=== PATIENT | male | born 1930 | race Caucasian/White ===

== ENCOUNTER 2017-05-16 15:31 | Emergency (ER) | payer MEDICARE ==
--- NOTE | 2017-05-16 15:55 | ED ---
General Adult HPI <Raphael Steinberg - Last Filed: 05/16/17 15:55> - General Source: patient, family, RN notes reviewed Limitations: no limitations <August Smalls - Last Filed: 05/16/17 17:36> - General Stated complaint: Irregular Heartbeat Time Seen by Provider: 05/16/17 15:54 - History of Present Illness Initial comments: Patient is a pleasant 87-year-old male presenting to the emergency department with concerns for irregular heartbeat. Patient recently just switch his primary care physician. Patient had EKG done showing irregular heartbeat. No known history of irregular heartbeat or atrial fibrillation. Patient does not take blood thinners. Patient denies any palpitations. No chest pain. No dyspnea. No weakness. Patient is symptom-free. (August Smalls) - Related Data Home Medications Medication Instructions Recorded Confirmed Bisoprolol-Hctz 10-6.25 mg [Ziac 1 tab PO DAILY 01/11/15 05/16/17 10-6.25 MG] Amlodipine Besylate/Valsartan 1 tab PO DAILY 05/16/17 05/16/17 [Exforge 5-320 mg Tablet] Budesonide/Formoterol Fumarate 2 puff INHALATION RT-BID 05/16/17 05/16/17 [Symbicort 160-4.5 Mcg Inhaler] Furosemide [Lasix] 20 mg PO BID 05/16/17 05/16/17 Montelukast [Singulair] 10 mg PO HS 05/16/17 05/16/17 hydrALAZINE HCL [Apresoline] 50 mg PO TID 05/16/17 05/16/17 Allergies Allergy/AdvReac Type Severity Reaction Status Date / Time amoxicillin Allergy Unknown Verified 05/16/17 16:53 levocetirizine [From Xyzal] Allergy Unknown Verified 05/16/17 16:53 ciprofloxacin [From Cipro] AdvReac Unknown Verified 05/16/17 16:53 ciprofloxacin HCl AdvReac Unknown Verified 05/16/17 16:53 [From Cipro] clonidine AdvReac Unknown Verified 05/16/17 16:53 codeine AdvReac Hallucinati Verified 05/16/17 16:53 ons meperidine AdvReac Hallucinati Verified 05/16/17 16:53 ons Review of Systems ROS Other: All systems not noted in ROS Statement are negative. <Raphael Steinberg - Last Filed: 05/16/17 15:55> ROS Other: All systems not noted in ROS Statement are negative. Constitutional: Denies: fever Eyes: Denies: eye pain ENT: Denies: ear pain Respiratory: Denies: cough Cardiovascular: Denies: chest pain, palpitations Endocrine: Denies: fatigue Gastrointestinal: Denies: abdominal pain Genitourinary: Denies: urgency Musculoskeletal: Denies: back pain Skin: Denies: rash Neurological: Denies: weakness <August Smalls - Last Filed: 05/16/17 17:36> ROS Statement: Those systems with pertinent positive or pertinent negative responses have been documented in the HPI. Past Medical History Past Medical History: Hyperlipidemia, Hypertension History of Any Multi-Drug Resistant Organisms: None Reported Past Surgical History: Appendectomy, Cholecystectomy Past Psychological History: No Psychological Hx Reported Smoking Status: Former smoker Past Alcohol Use History: None Reported, Occasional Past Drug Use History: None Reported <Raphael Steinberg - Last Filed: 05/16/17 15:55> General Exam Limitations: no limitations General appearance: alert, in no apparent distress Head exam: Present: atraumatic Eye exam: Present: normal appearance, PERRL ENT exam: Present: normal oropharynx Neck exam: Present: normal inspection Respiratory exam: Present: normal lung sounds bilaterally Cardiovascular Exam: Present: irregular rhythm Expanded Peripheral pulses: 2+: Radial (R), Radial (L), Posterior Tibialis (R), Posterior Tibialis (L) GI/Abdominal exam: Present: soft. Absent: tenderness Extremities exam: Present: normal inspection Neurological exam: Present: alert Psychiatric exam: Present: normal affect, normal mood Skin exam: Present: normal color <August Smalls - Last Filed: 05/16/17 17:36> Vital Signs 05/16/17 05/16/17 15:57 16:55 Temperature 96.9 F L Pulse Rate 68 62 Respiratory 18 18 Rate Blood Pressure 188/102 218/101 O2 Sat by Pulse 98 96 Oximetry EKG Findings - EKG Comments: EKG Findings:: EKG shows atrial fibrillation rate of 62, QRS 86, QTC of 444 <Raphael Steinberg - Last Filed: 05/16/17 15:55> Medical Decision Making <Raphael Steinberg - Last Filed: 05/16/17 15:55> - Lab Data Result diagrams: 05/16/17 16:10 05/16/17 16:10 - Radiology Data Radiology results: image reviewed (Chest x-ray shows cardiomegaly with atelectasis. No acute process.) <August Smalls - Last Filed: 05/16/17 17:36> - Medical Decision Making Patient reevaluated and resting comfortably in bed. Blood pressure has risen. Patient states he did not take his hydralazine. This has been ordered. Case was discussed with Dr. Sinha, covering for Dr. Lopes who does recommendation for cardiology evaluation. Patient refuses admission. Patient will leave AGAINST MEDICAL ADVICE. Patient is alert and oriented 3. Patient was aware of risks regarding not having further evaluation and lowering of blood pressure. Patient is aware he is at risk for heart attack and stroke. Family is present and feel patient is capable to make his own decisions. (August Smalls) - Lab Data Lab Results 05/16/17 05/16/17 05/16/17 Range/Units 16:10 16:10 16:10 WBC 6.5 (3.8-10.6) k/uL RBC 5.24 (4.30-5.90) m/uL Hgb 16.5 (13.0-17.5) gm/dL Hct 51.2 (39.0-53.0) % MCV 97.6 (80.0-100.0) fL MCH 31.4 (25.0-35.0) pg MCHC 32.2 (31.0-37.0) g/dL RDW 13.4 (11.5-15.5) % Plt Count 222 (150-450) k/uL Neutrophils % 46 % Lymphocytes % 43 % Monocytes % 7 % Eosinophils % 1 % Basophils % 1 % Neutrophils # 3.0 (1.3-7.7) k/uL Lymphocytes # 2.8 (1.0-4.8) k/uL Monocytes # 0.4 (0-1.0) k/uL Eosinophils # 0.1 (0-0.7) k/uL Basophils # 0.0 (0-0.2) k/uL PT (9.0-12.0) sec INR (<1.2) APTT (22.0-30.0) sec Sodium 137 (137-145) mmol/L Potassium 3.9 (3.5-5.1) mmol/L Chloride 100 (98-107) mmol/L Carbon Dioxide 27 (22-30) mmol/L Anion Gap 10 mmol/L BUN 23 H (9-20) mg/dL Creatinine 1.50 H (0.66-1.25) mg/dL Est GFR (MDRD) Af Amer 54 (>60 ml/min/1.73 sqM) Est GFR (MDRD) Non-Af 44 (>60 ml/min/1.73 sqM) Glucose 132 H (74-99) mg/dL Calcium 9.3 (8.4-10.2) mg/dL Magnesium 2.0 (1.6-2.3) mg/dL Total Bilirubin 0.8 (0.2-1.3) mg/dL AST 28 (17-59) U/L ALT 46 (21-72) U/L Alkaline Phosphatase 67 (38-126) U/L Total Creatine Kinase 36 L (55-170) U/L CK-MB (CK-2) 1.2 (0.0-2.4) ng/mL CK-MB (CK-2) Rel Index 3.3 Troponin I <0.012 (0.000-0.034) ng/mL Total Protein 7.1 (6.3-8.2) g/dL Albumin 4.1 (3.5-5.0) g/dL TSH 3.070 (0.465-4.680) mIU/L Free T4 1.50 (0.78-2.19) ng/dL Free T3 pg/mL 4.0 (2.8-5.3) pg/ml 05/16/17 Range/Units 16:10 WBC (3.8-10.6) k/uL RBC (4.30-5.90) m/uL Hgb (13.0-17.5) gm/dL Hct (39.0-53.0) % MCV (80.0-100.0) fL MCH (25.0-35.0) pg MCHC (31.0-37.0) g/dL RDW (11.5-15.5) % Plt Count (150-450) k/uL Neutrophils % % Lymphocytes % % Monocytes % % Eosinophils % % Basophils % % Neutrophils # (1.3-7.7) k/uL Lymphocytes # (1.0-4.8) k/uL Monocytes # (0-1.0) k/uL Eosinophils # (0-0.7) k/uL Basophils # (0-0.2) k/uL PT 11.2 (9.0-12.0) sec INR 1.1 (<1.2) APTT 24.0 (22.0-30.0) sec Sodium (137-145) mmol/L Potassium (3.5-5.1) mmol/L Chloride (98-107) mmol/L Carbon Dioxide (22-30) mmol/L Anion Gap mmol/L BUN (9-20) mg/dL Creatinine (0.66-1.25) mg/dL Est GFR (MDRD) Af Amer (>60 ml/min/1.73 sqM) Est GFR (MDRD) Non-Af (>60 ml/min/1.73 sqM) Glucose (74-99) mg/dL Calcium (8.4-10.2) mg/dL Magnesium (1.6-2.3) mg/dL Total Bilirubin (0.2-1.3) mg/dL AST (17-59) U/L ALT (21-72) U/L Alkaline Phosphatase (38-126) U/L Total Creatine Kinase (55-170) U/L CK-MB (CK-2) (0.0-2.4) ng/mL CK-MB (CK-2) Rel Index Troponin I (0.000-0.034) ng/mL Total Protein (6.3-8.2) g/dL Albumin (3.5-5.0) g/dL TSH (0.465-4.680) mIU/L Free T4 (0.78-2.19) ng/dL Free T3 pg/mL (2.8-5.3) pg/ml Disposition <Raphael Steinberg - Last Filed: 05/16/17 15:55> <August Smalls - Last Filed: 05/16/17 17:36> Clinical Impression: New onset atrial fibrillation, Hypertension Disposition: Left Against Medical Advice Instructions: Hypertension (ED), A-fib (Atrial Fibrillation) (ED) Additional Instructions: You're leaving AGAINST MEDICAL ADVICE. Please follow-up in the morning with Dr. Lopes. He will need further evaluation regarding irregular heartbeat and care for this as well as high blood pressure. You may need cardiology evaluation also, number provided. Return for weakness, chest pain, confusion, difficulty breathing, worsening symptoms or any other concerns. Referrals: Alexandr Lopes MD [Primary Care Provider] - 1-2 days
[2017-05-16 15:59] VITALS: RESP 18
[2017-05-16 16:26] LABS: Basophils % (A) 1 %; CHCM 32.9; Eosinophils # (A) 0.1 k/uL (0-0.7); Eosinophils % (A) 1 %; HCT 51.2 % (39.0-53.0); HDW 2.31; HGB 16.5 gm/dL (13.0-17.5); Luc # (Auto) 0.19; Luc % (Auto) 3; Lymphocytes # (A) 2.8 k/uL (1.0-4.8); Lymphocytes % (A) 43 %; MCH 31.4 pg (25.0-35.0); MCHC 32.2 g/dL (31.0-37.0); MCV 97.6 fL (80.0-100.0); Mean Platelet Volume 7.3; Monocytes # (A) 0.4 k/uL (0-1.0); Monocytes % (A) 7 %; Neutrophils % (A) 46 %; RBC 5.24 m/uL (4.30-5.90); RDW 13.4 % (11.5-15.5); WBC 6.5 k/uL (3.8-10.6); WBC (Perox) 5.92
[2017-05-16 16:32] LABS: Calcium 9.3 mg/dL (8.4-10.2); Potassium 3.9 mmol/L (3.5-5.1); Total Bilirubin 0.8 mg/dL (0.2-1.3); Total Protein 7.1 g/dL (6.3-8.2)
[2017-05-16 16:33] LABS: INR 1.1 (<1.2); Prothrombin Time 11.2 sec (9.0-12.0)
[2017-05-16 16:41] LABS: Creatine Kinase 36 U/L (55-170)
[2017-05-16 16:54] LABS: Creatine Kinase MB 1.2 ng/mL (0.0-2.4); Troponin I <0.012 ng/mL (0.000-0.034)
--- NOTE | 2017-05-16 16:58 | XR ---
EXAMINATION TYPE: XR chest 2V DATE OF EXAM: 05/16/2017 COMPARISON: None HISTORY: 87-year-old male dysrhythmia TECHNIQUE: AP and lateral views FINDINGS: The heart is mildly enlarged. Mild elongation of the thoracic aorta. Mild interstitial prominence as a chronic appearance. Strandy areas of atelectasis in the lower lungs. No yue consolidation or pleu ral effusion. IMPRESSION: Cardiomegaly with strandy areas of basilar atelectasis. No definite acute process.
[2017-05-16] MEDS ORDERED: hydrALAZINE HCL 50 MG TAB PO STA (17:20)
[2017-05-16 18:02] VITALS: BP 191/95; PULSE 61; TEMP 98.6
== END 2017-05-16 18:02 | disposition left against medical advice (07) ==
LOC: EC 15:31
DX: I48.91 Unspecified atrial fibrillation (principal); I10 Essential (primary) hypertension; Z87.891 Personal history of nicotine dependence; Z88.0 Allergy status to penicillin; Z88.1 Allergy status to other antibiotic agents; Z88.5 Allergy status to narcotic agent; Z88.8 Allergy status to other drugs, medicaments and biological substances; Z79.51 Long term (current) use of inhaled steroids; Z53.29 Procedure and treatment not carried out because of patient's decision for other reasons; Z79.899 Other long term (current) drug therapy
CPT/HCPCS: 36415; 71020; 80053; 82550; 82553; 83735; 84439; 84443; 84481; 84484; 85025; 85610; 85730; 93005; 99285